=== PATIENT | male | born 1960 | race Caucasian/White ===

== ENCOUNTER 2022-07-31 08:50 | Emergency (ER) | payer MEDICARE ==
--- NOTE | 2022-07-31 08:59 | ERPHSYRPT ---
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 Briseno who presents with initial left upper extremity achiness that began last night followed by this morning having left anterior chest wall pressure/ache that radiates into the left upper extremity and there is associated shortness of breath at rest. Patient does have a history of hypertension, atrial fibrillation on Eliquis, and gastroesophageal reflux disease. Patient is most concerned about the shortness of breath at rest which is different for him. Patient denies cough. Patient denies fever. Activities at Onset: rest Quality: aching, pressure Chest Pain Radiation: arm (Left) Severity of Pain-Max: mild Severity of Pain-Current: mild Modifying Factors: Improves With: exertion (Worsens), rest (Still present at rest) Associated Symptoms: nausea, shortness of breath, No cough Prior Chest Pain/Cardiac Workup: cardiac cath Nitro Today/Relief: no nitro taken today Aspirin Treatment Today: no aspirin today Allergies/Adverse Reactions: No Known Drug Allergies Allergy (Verified 07/31/22 08:54) Home Medications: Cyclobenzaprine HCl 10 mg [Flexeril 10 MG] 10 mg PO DAILY PRN PRN 09/17/11 [History] Enalapril Maleate 10 mg [Vasotec 10 MG] 10 mg PO DAILY 09/17/11 [History] Ranitidine HCl [zanTAC 150 MG TABLET] 300 mg PO DAILY 09/17/11 [History] Alendronate Sodium 70 mg [Fosamax 70 MG] 70 mg PO WEEKLY 01/27/15 [History] Ascorbic Acid 500 mg [Vitamin C 500 MG] 1,000 mg PO DAILY 01/27/15 [History] Aspirin [Aspir-Low] 81 mg PO DAILY 01/27/15 [History] Calcium Carbonate/Vitamin D3 [Calcium 600 + D Tablet] 1 each PO DAILY 01/27/15 [History] Mometasone Furoate [Nasonex] 17 gm NS BID 01/27/15 [History] [place]-3 Fatty Acids [Fish Oil] 300 mg PO TID 01/27/15 [History] Hx Tetanus, Diphtheria Vaccination/Date Given: No (UNSURE) Hx Influenza Vaccination/Date Given: No Hx Pneumococcal Vaccination/Date Given: No Travel Risk - International Travel Have you traveled outside of the country in past 3 weeks: No - Coronavirus Screening Are you exhibiting any of the following symptoms?: No Close contact with a COVID-19 positive Pt in past 14-21 Days: No - Review of Systems Constitutional: No Symptoms Eyes: No Symptoms Ears, Nose, & Throat: No Symptoms Respiratory: Dyspnea Cardiac: Chest Pain (Described as left chest pressure/ache) Abdominal/Gastrointestinal: No Symptoms Genitourinary Symptoms: No Symptoms Musculoskeletal: No Symptoms Skin: No Symptoms Neurological: No Symptoms Psychological: No Symptoms Endocrine: No Symptoms Hematologic/Lymphatic: No Symptoms Immunological/Allergic: No Symptoms All Other Systems: Reviewed and Negative - Past Medical History Pertinent Past Medical History: Yes Cardiac History: Hypertension GI Medical History: GERD Other Medical History: Decreased bone density - Past Surgical History Past Surgical History: No - Social History Smoking Status: Current some day smoker Exposure to second hand smoke: Yes Drug Use: none Patient Lives Alone: No - Nursing Vital Signs Nursing Vital Signs: Initial Vital Signs Temperature 96.6 F 07/31/22 08:55 Pulse Rate 91 H 07/31/22 08:55 Respiratory Rate 20 07/31/22 08:55 Blood Pressure 118/75 07/31/22 08:55 O2 Sat by Pulse Oximetry 96 07/31/22 08:55 Pain Scale Pain Intensity 5 - Physical Exam General Appearance: no apparent distress, alert, anxiety, obese Eye Exam: PERRL/EOMI, eyes nml inspection Ears, Nose, Throat Exam: normal ENT inspection, moist mucous membranes Neck Exam: normal inspection, non-tender, supple, full range of motion Respiratory Exam: normal breath sounds, chest tenderness (Left chest), lungs clear ( ache/pressure), airway intact, No respiratory distress Cardiovascular Exam: irregular Gastrointestinal/Abdomen Exam: soft, normal bowel sounds, No tenderness Rectal Exam: not done Back Exam: normal inspection, normal range of motion, No CVA tenderness, No vertebral tenderness Extremity Exam: normal inspection, normal range of motion, pelvis stable Neurologic Exam: alert, oriented x 3, cooperative, all source collection manager II-XII nml as tested, normal mood/affect, nml cerebellar function, nml station & gait, sensation nml Skin Exam: normal color, warm, dry Lymphatic Exam: No adenopathy SpO2 Interpretation: normal O2 Delivery: Room Air - Course Nursing assessment & vital signs reviewed: Yes EKG Interpreted by Me: RATE (92), Right Bundle Branch Block, Other (This patient shows no acute ischemic changes. The computer readout of this twelve-lead EKG is his atrial flutter. I think the patient is in rate controlled atrial fibrillation.) Ordered Tests: Active Orders 24 hr Category Date Time Status Cartography Supervisor STAT Care 07/31/22 09:07 Active EKG-ER Only STAT Care 07/31/22 09:07 Active IV Insertion STAT Care 07/31/22 09:07 Active Pulse Oximetry (ED) STAT Care 07/31/22 09:07 Active CHEST 1 VIEW (PORTABLE) Stat Exams 07/31/22 09:07 Completed CBC W DIFF Stat Lab 07/31/22 09:10 Completed CMP Stat Lab 07/31/22 09:10 Completed NT PRO BNPII Stat Lab 07/31/22 09:10 Completed PROTIME WITH INR Stat Lab 07/31/22 09:10 Completed TROPONIN Q4H Lab 07/31/22 09:10 Completed TROPONIN Q4H Lab 07/31/22 13:15 Ordered TROPONIN Q4H Lab 07/31/22 17:15 Ordered Medication Summary Discontinued Medications Generic Name Dose Route Start Last Admin Trade Name Freq PRN Reason Stop Dose Admin Aspirin 324 mg 07/31/22 09:07 07/31/22 09:13 Aspirin 81 Mg Tab.Chew PO 07/31/22 09:08 324 mg STAT ONE Administration Aspirin Confirm 07/31/22 09:23 Aspirin 81 Mg Tab.Chew Administered 07/31/22 09:24 Dose 324 mg .ROUTE .STK-MED ONE Lab/Rad Data: Laboratory Result Diagrams 07/31/22 09:10 07/31/22 09:10 Laboratory Results 07/31/22 07/31/22 07/31/22 Range/Units 09:10 09:10 09:10 WBC (4.0-10.5) x10^3/uL RBC (4.1-5.6) x10^6/uL Hgb (12.5-18.0) g/dL Hct (42-50) % MCV (78-100) fL MCH (26-32) pg MCHC (32-36) g/dL RDW (11.5-14.0) % Plt Count (150-450) x10^3/uL MPV (7.5-11.0) fL Gran % (36.0-66.0) % Immature Gran % (Auto) (0.00-0.4) % Nucleat RBC Rel Count (0.00-0.1) % Eos # (Auto) (0-0.5) x10^3/uL Immature Gran # (Auto) (0.00-0.03) x10^3u/L Absolute Lymphs (auto) (1.0-4.6) x10^3/uL Absolute Monos (auto) (0.0-1.3) x10^3/uL Absolute Nucleated RBC (0.00-0.01) x10^3u/L Lymphocytes % (24.0-44.0) % Monocytes % (0.0-12.0) % Eosinophils % (0.00-5.0) % Basophils % (0.0-0.4) % Absolute Granulocytes (1.4-6.9) x10^3/uL Basophils # (0-0.4) x10^3/uL PT 12.0 (9.4-12.5) SECONDS INR 1.11 (0.8-3.0) Sodium 137 (137-145) mmol/L Potassium 3.7 (3.5-5.1) mmol/L Chloride 100 (98-107) mmol/L Carbon Dioxide 31 H (22-30) mmol/L Anion Gap 9.4 (5-15) MEQ/L BUN 13 (9-20) mg/dL Creatinine 0.59 L (0.66-1.25) mg/dL Estimated GFR > 60.0 ML/MIN Glucose 102 (74-106) mg/dL Calcium 8.3 L (8.4-10.2) mg/dL Total Bilirubin 0.60 (0.2-1.3) mg/dL AST 27 (17-59) U/L ALT 22 (0-50) U/L Alkaline Phosphatase 68 (38-126) U/L Troponin I 0.390 H* (0.000-0.034) ng/mL NT-Pro-B Natriuret Pep 1700 (<300) pg/mL Serum Total Protein 5.7 L (6.3-8.2) g/dL Albumin 3.4 L (3.5-5.0) g/dL 07/31/22 Range/Units 09:10 WBC 5.1 (4.0-10.5) x10^3/uL RBC 4.53 (4.1-5.6) x10^6/uL Hgb 13.3 (12.5-18.0) g/dL Hct 40.2 L (42-50) % MCV 88.7 (78-100) fL MCH 29.4 (26-32) pg MCHC 33.1 (32-36) g/dL RDW 15.5 H (11.5-14.0) % Plt Count 235 (150-450) x10^3/uL MPV 9.0 (7.5-11.0) fL Gran % 48.6 (36.0-66.0) % Immature Gran % (Auto) 1.4 H (0.00-0.4) % Nucleat RBC Rel Count 0.0 (0.00-0.1) % Eos # (Auto) 0.30 (0-0.5) x10^3/uL Immature Gran # (Auto) 0.07 H (0.00-0.03) x10^3u/L Absolute Lymphs (auto) 1.42 (1.0-4.6) x10^3/uL Absolute Monos (auto) 0.76 (0.0-1.3) x10^3/uL Absolute Nucleated RBC 0.00 (0.00-0.01) x10^3u/L Lymphocytes % 27.8 (24.0-44.0) % Monocytes % 14.9 H (0.0-12.0) % Eosinophils % 5.9 H (0.00-5.0) % Basophils % 1.4 (0.0-0.4) % Absolute Granulocytes 2.49 (1.4-6.9) x10^3/uL Basophils # 0.07 (0-0.4) x10^3/uL PT (9.4-12.5) SECONDS INR (0.8-3.0) Sodium (137-145) mmol/L Potassium (3.5-5.1) mmol/L Chloride (98-107) mmol/L Carbon Dioxide (22-30) mmol/L Anion Gap (5-15) MEQ/L BUN (9-20) mg/dL Creatinine (0.66-1.25) mg/dL Estimated GFR ML/MIN Glucose (74-106) mg/dL Calcium (8.4-10.2) mg/dL Total Bilirubin (0.2-1.3) mg/dL AST (17-59) U/L ALT (0-50) U/L Alkaline Phosphatase (38-126) U/L Troponin I (0.000-0.034) ng/mL NT-Pro-B Natriuret Pep (<300) pg/mL Serum Total Protein (6.3-8.2) g/dL Albumin (3.5-5.0) g/dL - Progress Progress: improved, re-examined Air Movement: good Progress Note: 07/31/22 10:05 Chest x-ray impression by radiologist and reviewed by me. X-ray shows nonacute features with chronic changes. 07/31/22 11:18 This patient's medical issue is 1 of high complexity. The complexity and the work-up here in the emergency department is based on review of the patient's past medical history, review of the patient's medication list, [facility], history of present illness and physical findings on examination. The work-up performed was placement of intravenous line, twelve- lead EKG, CBC, CMP, chest x-ray, BNP, troponin level. I reviewed the results of the studies. The twelve-lead EKG shows rate controlled atrial fibrillation. The patient is having persistent chest pain. His troponin level is also elevated at 0.39. I spoke with digital experience manager Dr. Briseno. I reviewed the above history of present illness, twelve-lead EKG results, chest x-ray results, and results of the patient's blood work. Dr. Briseno agrees the patient should be transferred to a facility where he is working. [facility] in [facility] and be admitted to the hospitalist. 07/31/22 11:46 I contacted [facility] emergency physician Dr. Reyes. I reviewed the above history, physical findings, twelve-lead EKG and chest x-ray findings well as the lab results. He accepts the patient in transfer to his facility. Blood Culture(s) Obtained: No Antibiotics given: No Discussed with : Bindu Counseled pt/family regarding: lab results, diagnosis, need for follow-up, rad results Medical Desision Making - Independent Historian Additional History obtained from: Spouse - Discussion of managment Reviewed:: Test results, Need for additional workup Agreed on:: Treatment plan, need for follow-up - Diagnostic Testing Diagnostic test were ordered, analyzed, and reviewed by me: Yes Radiological Interpretation: Reviewed by me - Risk of complications The pt has a high risk of morbidity or mortality based on: Decision regarding hospitilization or escalation of hosp level of care - Departure Departure Disposition: Transfer Clinical Impression: Chest pain, Elevated troponin, Non-STEMI (non-ST elevated myocardial infarction) Condition: Stable Critical Care Time: Yes Critical Care Time(excluding separately billable procedures): Critical 30-74 mins (40 minutes) Referrals: ARCENIO ESPINOZA [Primary Care Provider] - Follow up/PCP as directed
[2022-07-31] MEDS ORDERED: BABY ASPIRIN 81 MG CHEW PO ONE (09:07)
[2022-07-31] MEDS ORDERED: BABY ASPIRIN 81 MG CHEW ONE (09:23)
--- NOTE | 2022-07-31 09:27 | XRAY ---
Indication: Chest pain and short of breath. Comparison: None Portable chest demonstrates chronic lung markings without focal infiltrate, consolidation, or large effusion. Heart borderline enlarged with left Port-A-Cath. Bony thorax intact with osteopenia, degenerative changes, and T10-T12 kyphoplasty. Impression: Nonacute chest with chronic features.
[2022-07-31 09:41] LABS: Absolute Neutrophil Ct (ANC) 2.49 x10^3/uL (1.4-6.9); BASOPHIL % 1.4 % (0.0-0.4); Basophil (Absolute #) 0.07 x10^3/uL (0-0.4); Eosinophil % 5.9 % (0.00-5.0); Hematocrit 40.2 % (42-50); Hemoglobin 13.3 g/dL (12.5-18.0); IMMATURE GRAN # 0.07 x10^3u/L (0.00-0.03); IMMATURE GRAN % 1.4 % (0.00-0.4); Lymphocyte (Absolute #) 1.42 x10^3/uL (1.0-4.6); Lymphocytes % 27.8 % (24.0-44.0); Mean Cell Volume 88.7 fL (78-100); Mean Corpuscular Hemoglobin 29.4 pg (26-32); Mean Corpuscular Hgb Concent. 33.1 g/dL (32-36); Monocyte (Absolute #) 0.76 x10^3/uL (0.0-1.3); Monocytes % 14.9 % (0.0-12.0); Neutrophil % 48.6 % (36.0-66.0); Platelet Count 235 x10^3/uL (150-450); Red Blood Count 4.53 x10^6/uL (4.1-5.6); Red Cell Distribution Width 15.5 % (11.5-14.0); White Blood Count 5.1 x10^3/uL (4.0-10.5)
[2022-07-31 09:54] LABS: INR 1.11 (0.8-3.0)
[2022-07-31 10:07] LABS: ALBUMIN 3.4 g/dL (3.5-5.0); ALKALINE PHOSPHATASE 68 U/L (38-126); ANION GAP 9.4 MEQ/L (5-15); BLOOD UREA NITROGEN 13 mg/dL (9-20); CHLORIDE 100 mmol/L (98-107); Calcium 8.3 mg/dL (8.4-10.2); Carbon Dioxide 31 mmol/L (22-30); Creatinine 1 0.59 mg/dL (0.66-1.25); EST GLOMERULAR FILTRATION RATE > 60.0 ML/MIN; Glucose 102 mg/dL (74-106); NT PRO BNPII 1700 pg/mL (<300); Potassium 3.7 mmol/L (3.5-5.1); SGOT/AST 27 U/L (17-59); SGPT/ALT 22 U/L (0-50); SODIUM 137 mmol/L (137-145); Total Protein 5.7 g/dL (6.3-8.2)
[2022-07-31 12:07] VITALS: BP 137/99; PULSE 98; O2SAT 97
== END 2022-07-31 13:06 | disposition short-term general hospital (02) ==
LOC: ED 08:50
DX: I21.4 Non-ST elevation (NSTEMI) myocardial infarction (principal); R77.8 Other specified abnormalities of plasma proteins; R07.9 Chest pain, unspecified; R06.02 Shortness of breath; I10 Essential (primary) hypertension; Z79.02 Long term (current) use of antithrombotics/antiplatelets; Z79.899 Other long term (current) drug therapy; Z72.0 Tobacco use
CPT/HCPCS: 36000; 36415; 71045; 80053; 83880; 84484; 85025; 85610; 93005; 93041; 94760; 99285; 99291; A9270-GY

== ENCOUNTER 2023-05-13 19:08 | Emergency (ER) | payer MEDICARE ==
[2023-05-13] MEDS ORDERED: NORCO 5/325 MG PO ONE ×2 (19:32→21:59)
--- NOTE | 2023-05-13 19:37 | ERPHSYRPT ---
- History of Present Illness Time Seen by Provider: 05/13/23 19:24 Source: patient Exam Limitations: no limitations Physician History: Pt states about 40 minutes ago at home he slipped on snow and landed on the front porch concrete landing with resultant pain on the right side of his face, neck, right shoulder, right arm and left leg; denies tingling/numbness, chest pain, shortness of air, fever, abdominal pain, nausea, vomiting. Allergies/Adverse Reactions: No Known Drug Allergies Allergy (Verified 05/13/23 19:43) Home Medications: Cyclobenzaprine HCl 10 mg [Flexeril 10 MG] 10 mg PO DAILY PRN PRN 09/17/11 [History] Calcium Carbonate/Vitamin D3 [Calcium 600 + D Tablet] 1 each PO BID 01/27/15 [History] Acyclovir 400 mg PO BID 05/13/23 [History] Apixaban [Eliquis] 5 mg PO BID 05/13/23 [History] Atorvastatin Calcium [Lipitor 40Mg] 40 mg PO DAILY 05/13/23 [History] Dapagliflozin Propanediol [Farxiga] 10 mg PO DAILY 05/13/23 [History] Daratumumab [Darzalex] 400 mg IV UD 05/13/23 [History] Dexamethasone 4 mg [Decadron 4 MG] 20 mg PO UD 05/13/23 [History] Fluticasone/Salmeterol [Advair Hfa 230-21 Mcg Inhaler] 8 gm IH BID 05/13/23 [History] Gabapentin 800 mg PO TID 05/13/23 [History] Hydrocodone/Acetaminophen [Hydrocodone-Acetamin 5-325 mg] 1 each PO BIDPRN PRN 05/13/23 [History] Levothyroxine Sodium 25 Mcg [Synthroid 25 Mcg] 25 mcg PO DAILY 05/13/23 [History] Loperamide HCl 2 mg [Imodium 2 mg] 2 mg PO Q2H/PRN PRN 05/13/23 [History] Loratadine 10 mg [Claritin 10 mg] 10 mg PO DAILY 05/13/23 [History] Metoprolol Tartrate 50 mg [Lopressor 50 MG] 50 mg PO BID 05/13/23 [History] Mv-Min/Folic/K1/Lycopen/Lutein [Centrum Silver Men Tablet] 1 each PO DAILY 05/13/23 [History] Omeprazole 20 mg PO HS 05/13/23 [History] Pomalidomide [Pomalyst] 2 mg PO UD 05/13/23 [History] Prochlorperazine Maleate [Compazine] 10 mg PO BIDPRN PRN 05/13/23 [History] Senna/Docusate Sodium Tab [Senokot-S Tablet] 1 each PO HSPRN PRN 05/13/23 [History] Triamcinolone Acetonide [Nasacort] 2 spray NS DAILY 05/13/23 [History] Triamterene/Hydrochlorothiazid [Triamterene-Hctz 37.5-25 mg Tb] 1 each PO DAILY 05/13/23 [History] Zoledronic AC/Mannitol/0.9NACL [Zoledronic Acid 4 mg/100 ml] 4 mg IV UD 05/13/23 [History] lisinopriL [Zestril] 2.5 mg PO DAILY 05/13/23 [History] Hx Tetanus, Diphtheria Vaccination/Date Given: No (UNSURE) Hx Influenza Vaccination/Date Given: No Hx Pneumococcal Vaccination/Date Given: No Travel Risk - Vaccine Status Have you recieved a Covid-19 vaccination: Yes Inspector Government Property: Unknown - Vaccination Dates Dates if Unknown: na - Review of Systems Constitutional: No Fever Ears, Nose, & Throat: No Ear Pain, No Throat Pain Respiratory: No Cough, No Dyspnea Cardiac: No Chest Pain Abdominal/Gastrointestinal: No Abdominal Pain, No Nausea, No Vomiting Musculoskeletal: Neck Pain, Other (right shoulder, right arm and left leg pain today; decreased rom of right shoulder after fall today.), No Back Pain Skin: Other (abrasions on right side of face, right hand and left leg) Neurological: No Sensory Changes - Past Medical History Pertinent Past Medical History: Yes ENT History: Cataracts Cardiac History: Hypertension Respiratory History: No Pertinent History Endocrine Medical History: Hypothyroidism Musculoskeletal History: No Pertinent History GI Medical History: GERD History: Other Psycho-Social History: No Pertinent History Male Reproductive Disorders: No Pertinent History Other Medical History: Decreased bone density - Past Surgical History Past Surgical History: No Neuro Surgical History: No Pertinent History Cardiac: No Pertinent History Respiratory: No Pertinent History Gastrointestinal: No Pertinent History Genitourinary: No Pertinent History Musculoskeletal: Orthopedic Surgery Male Surgical History: No Pertinent History Other Surgical History: Kyphoplasty X 2. Port placement - Social History Smoking Status: Current some day smoker Exposure to second hand smoke: Yes Drug Use: none Patient Lives Alone: No - Nursing Vital Signs Nursing Vital Signs: Initial Vital Signs Temperature 98.1 F 05/13/23 19:22 Pulse Rate 67 05/13/23 19:22 Respiratory Rate 18 05/13/23 19:22 Blood Pressure 109/56 05/13/23 19:22 O2 Sat by Pulse Oximetry 97 05/13/23 19:22 Pain Scale Pain Intensity 10 - Randolph Coma Score Best Eye Response (Randolph): (4) open spontaneously Best Verbal Response (Randolph): (5) oriented Best Motor Response (Randolph): (6) obeys commands Randolph Total: 15 - Physical Exam General Appearance: alert Head Injury: tenderness (mild tenderness over abrasions on right lower forehead and right facial cheek) Eye Exam: PERRL/EOMI ENT Exam: airway nml, hearing grossly normal, No clear fluid (ears), No clear fluid (nose), No clotted nasal blood Neck Exam: trachea midline, tenderness (mild right posterior tenderness) Respiratory/Chest Exam: normal breath sounds, No chest tenderness Cardiovascular Exam: normal heart sounds Gastrointestinal Exam: soft, normal bowel sounds, No tenderness Back Exam: No vertebral tenderness Extremity Exam: motor deficit (decreased rom of right shoulder with tenderness over anterior aspect and upper right arm tenderness), tenderness (mild tenderness over abrasions on proximal radial aspect of right hand; tenderness o brody abrasion over upper anterior aspect of left leg.) Peripheral Pulses: dorsalis-pedis (R): 1+, dorsalis-pedis (L): 1+ Neurologic Exam: alert, cooperative, normal mood/affect, No disoriented Skin Exam: No cyanosis - Radiology Exams Right Shoulder X-ray Interpretation: Interpreted by me (Fracture upper right humerus) Left Lower Leg X-ray Interpretation: Interpreted by me, No Fracture Right Humerus X-ray Interpretation: Interpreted by me (Fx upper right humerus) Right Hand X-ray Interpretation: Interpreted by me, No Fracture - CT Exams Head CT Interpretation: Tele-radiologist Report (No evidence of acute intracranial abnormality is demonstrated. Chronic microvascular ischemic change. Cerebral atrophy.) Cervical Spine CT Interpretation: Tele-radiologist Report (No acute fracture/traumatic subluxation.) Maxillofacial Bones CT Interpretation: Tele-radiologist Report (No acute fracture. Mild fat stranding in subcutaneous plane right maxillary area.) Ordered Tests: Active Orders 24 hr Category Date Time Status Cervical Collar Application STAT Care 05/13/23 19:32 Active CERVICAL SPINE WO CONTRAST [CT] Stat Exams 05/13/23 19:32 Completed FACIAL BONES WO CONTRAST [CT] Stat Exams 05/13/23 19:32 Completed HAND (MINIMUM 3 VIEWS) Stat Exams 05/13/23 19:33 Taken HEAD WITHOUT CONTRAST [CT] Stat Exams 05/13/23 19:32 Completed HUMERUS Stat Exams 05/13/23 19:34 Taken LOWER LEG Stat Exams 05/13/23 19:35 Taken SHOULDER Stat Exams 05/13/23 19:34 Taken Medication Summary Discontinued Medications Generic Name Dose Route Start Last Admin Trade Name Freq PRN Reason Stop Dose Admin Hydrocodone Bitart/Acetaminophen 2 tab 05/13/23 19:32 05/13/23 19:41 Hydrocodone/Apap 5/325 1 Tab Tablet PO 05/13/23 19:33 2 tab STAT ONE Administration Hydrocodone Bitart/Acetaminophen Confirm 05/13/23 19:39 Hydrocodone/Apap 5/325 1 Tab Tablet Administered 05/13/23 19:40 Dose 2 tab .ROUTE .STK-MED ONE Hydrocodone Bitart/Acetaminophen 2 tab 05/13/23 21:59 Hydrocodone/Apap 5/325 1 Tab Tablet PO 05/13/23 22:00 SENT HOME W/ PATIENT ONE Cephalexin HCl 500 mg 05/13/23 22:04 Cephalexin Mh500 Mg Capsule PO 05/13/23 22:05 STAT ONE - Progress Progress: unchanged Discussed with : Other (Spoke with Dr. Barros(Orthopedic surgeon)([id number]) who will see pt in her office. [phone]) Counseled pt/family regarding: diagnosis, need for follow-up, rad results Medical Desision Making - Diagnostic Testing Diagnostic test were ordered, analyzed, and reviewed by me: Yes Radiological Interpretation: Interpreted by me, Teleradiologist Report - Departure Departure Disposition: Home Clinical Impression: Fractured upper right humerus, Right shoulder pain, Abrasion/contusion of right hand, Abrasion/contusion of left leg, abrasion/contusion to right forehead, contusion of right facial cheek, Cervical strain, Fall Condition: Stable Critical Care Time: No Referrals: ARCENIO ESPINOZA [Primary Care Provider] - Follow up/PCP as directed Instructions: Fractures, Skin Abrasions, Contusion (DC) Additional Instructions: Wear right arm sling & swath. Follow up with Dr Barros(orthopedic surgeon) tomorrow; call for an appointment. Wear soft C-collar for the next 2 weeks only while awake. Prescriptions: cephALEXin 500 mg PO TID #21
[2023-05-13] MEDS ORDERED: NORCO 5/325 MG ONE ×2 (19:39→22:51)
[2023-05-13 19:44] VITALS: TEMP 98.1
--- NOTE | 2023-05-13 20:48 | XRAY ---
CLINICAL HISTORY:pain COMPARISON:None TECHNIQUE:Multiple axial images are obtained from the skull base to the vertex without contrast. CT scan was performed according to ALARA (as low as reasonable achievable). FINDINGS: There is cerebral atrophy. No evidence of space occupying lesion, hemorrhage, edema, mass effect, midline shift, extra axial collection, or hydrocephalus is noted. Basal cisterns are symmetric and normal in size and configuration. There are scattered periventricular hypodensities as can be seen with chronic microvascular ischemic changes. The silva-white matter differentiation is preserved. Visualized paranasal sinuses and mastoid air cells are well aerated. Orbital contents are within normal limits. Bony structures are intact. IMPRESSION: 1. No evidence of acute intracranial abnormality is demonstrated. 2. Chronic microvascular ischemic changes. 3. Cerebral atrophy. Electronically Signed by: Dr. Aneesh Denis MD. (05/13/2023 20:44:09 EST)
--- NOTE | 2023-05-13 20:52 | XRAY ---
CLINICAL HISTORY:pain COMPARISON:None TECHNIQUE:Computed tomography of the cervical spine performed without intravenous contrast. Contiguous axial images were obtained from the skull base to T2, with sagittal and coronal reformatted images reconstructed from the axial data. CT scan was performed according to ALARA (as low as reasonable achievable). FINDINGS: Loss of cervical lordosis is seen, which may be related to positioning. Cervical vertebral bodies are normal in height and alignment, with no evidence of fracture or subluxation. Lateral masses of C1 are symmetrical, and the dens is intact. Prevertebral soft tissues are not widened. The remaining suprahyoid and infrahyoid soft tissues in the neck are unremarkable. Multilevel degenerative bone and disc changes are noted in the form of osteophytes, reduced disc spaces and facet arthropathy causing mild spinal canal narrowing at C6-C7 level. Thyroid gland appears unremarkable IMPRESSION: 1. No acute fracture / traumatic subluxation. Electronically Signed by: Dr. Aneesh Denis MD. (05/13/2023 20:48:18 EST)
--- NOTE | 2023-05-13 21:43 | XRAY ---
CLINICAL HISTORY:pain COMPARISON:None TECHNIQUE:Computed tomography of the orbits/face was performed without intravenous contrast. Contiguous axial images were obtained. Reformatted coronal and sagittal images were also reviewed. CT scan was performed according to ALARA (as low as reasonable achievable). FINDINGS: No acute facial fractures. The paranasal sinuses and mastoid air cells are clear. The globes, optic nerves, extraocular muscles and retro-orbital fat are grossly unremarkable. Reformatted imaging demonstrates intact roof and floor of the orbits. Included portions of the mandible are intact. The included intracranial substances and airway are unremarkable. There is mild fat stranding in the subcutaneous plane in the right maxillary area. IMPRESSION: 1. No acute fracture. 2. Mild fat stranding in the subcutaneous plane in the right maxillary area. Electronically Signed by: Dr. Aneesh Denis MD. (05/13/2023 21:39:27 EST)
[2023-05-13] MEDS ORDERED: KEFLEX 500 MG PO ONE (22:04)
[2023-05-13 22:06] VITALS: RESP 18
[2023-05-13] MEDS ORDERED: KEFLEX 500 MG ONE (22:51)
[2023-05-13] MEDS ORDERED: BACIGUENT PACKET TP ONE (22:54)
[2023-05-13] MEDS ORDERED: Adacel Vial IM ONE ×2 (22:54→22:58)
[2023-05-13] MEDS ORDERED: BACIGUENT PACKET ONE (22:57)
[2023-05-14 00:07] VITALS: BP 113/57; PULSE 71; O2SAT 98
--- NOTE | 2023-05-14 08:44 | XRAY ---
Indication: Pain following fall. Comparison: None 3 view right shoulder demonstrates comminuted and displaced humeral head fracture. Elsewhere osteopenia, moderate acromioclavicular degenerative changes, tiny right lung calcified granuloma, and incompletely visualized left Port-A-Cath.
--- NOTE | 2023-05-14 08:44 | XRAY ---
Indication: Pain following fall. Comparison: None 2 view right humerus demonstrates comminuted and displaced humeral head fracture. Elsewhere osteopenia, moderate acromioclavicular degenerative changes, and tiny right lung calcified granuloma.
--- NOTE | 2023-05-14 08:46 | XRAY ---
Indication: Pain following fall. Comparison: None 3 view right hand demonstrates osteopenia and minimal degenerative changes all IP joints/base 1st metacarpal. No other bony, articular, or soft tissue abnormalities.
--- NOTE | 2023-05-14 08:46 | XRAY ---
Indication: Pain following fall. Comparison: None 2 view left lower leg demonstrates osteopenia, small suprapatella spurring, tiny lateral femoral condyle bone island, and minimal vascular calcifications. No other bony, articular, or soft tissue abnormalities.
== END 2023-05-13 23:18 | disposition home or self-care (01) ==
LOC: ED 19:08
DX: S42.291A Other displaced fracture of upper end of right humerus, initial encounter for closed fracture (principal); S60.511A Abrasion of right hand, initial encounter; S80.811A Abrasion, right lower leg, initial encounter; S00.81XA Abrasion of other part of head, initial encounter; S00.83XA Contusion of other part of head, initial encounter; S16.1XXA Strain of muscle, fascia and tendon at neck level, initial encounter; W00.0XXA Fall on same level due to ice and snow, initial encounter; Y92.007 Garden or yard of unspecified non-institutional (private) residence as the place of occurrence of the external cause; M25.511 Pain in right shoulder; I10 Essential (primary) hypertension; Z79.01 Long term (current) use of anticoagulants; Z79.84 Long term (current) use of oral hypoglycemic drugs; Z79.52 Long term (current) use of systemic steroids; Z79.891 Long term (current) use of opiate analgesic; Z79.899 Other long term (current) drug therapy; Z72.0 Tobacco use; Z23 Encounter for immunization
CPT/HCPCS: 70450; 70486; 72125; 73030; 73060; 73130; 73590; 90471; 90715; 99284; L0120; L3650; A9270-GY

== ENCOUNTER 2024-06-27 10:50 | Emergency (ER) | payer MEDICARE ==
--- NOTE | 2024-06-27 11:03 | ERPHSYRPT ---
- History of Present Illness Time Seen by Provider: 06/27/24 11:03 Source: patient, family Exam Limitations: no limitations Physician History: This is a 63-year-old white male patient who arrives by private vehicle accompanied by family secondary to fever symptoms for 2 days. Patient has history of multiple myeloma and is on chemotherapy for it. His last treatment was approximately 10 days ago. He has had cough and chest congestion for approximately 1 month and did receive a treatment of antibiotics approximately 2 to 3 weeks ago. He was improving on that antibiotic. Since the completion of that antibiotic therapy, his symptoms have recurred and persisted. Patient sees Dr. Fiore, handicrafts teacher/oncologist out of [facility]. Patient denies shortness of breath. Patient denies chest pain. He has no abdominal pain. He currently has no nausea vomiting or diarrhea symptoms. Patient has a history of hypertension, gastroesophageal reflux disease, hypothyroidism and peripheral neuropathy. He also has a history of hyperlipidemia and is on E liquis. Timing/Duration: day(s) (2) Fever Severity: mild Fever Therapy RETAIL LOAN ORIGINATOR: none Associated Symptoms: cough Allergies/Adverse Reactions: No Known Drug Allergies Allergy (Verified 06/27/24 10:57) Home Medications: Cyclobenzaprine HCl 10 mg [Flexeril 10 MG] 10 mg PO DAILY PRN PRN 09/17/11 [History] Calcium Carbonate/Vitamin D3 [Calcium 600 + D Tablet] 1 each PO BID 01/27/15 [History] Acyclovir 400 mg PO BID 05/13/23 [History] Apixaban [Eliquis] 5 mg PO BID 05/13/23 [History] Atorvastatin Calcium [Lipitor 40Mg] 40 mg PO DAILY 05/13/23 [History] Dapagliflozin Propanediol [Farxiga] 10 mg PO DAILY 05/13/23 [History] Daratumumab [Darzalex] 400 mg IV UD 05/13/23 [History] Dexamethasone 4 mg [Decadron 4 MG] 20 mg PO UD 05/13/23 [History] Fluticasone Propion/Salmeterol [Advair Hfa 230-21 Mcg Inhaler] 8 gm IH BID 05/13/23 [History] Gabapentin 800 mg PO TID 05/13/23 [History] Hydrocodone/Acetaminophen [Hydrocodone-Acetamin 5-325 mg] 1 each PO BIDPRN PRN 05/13/23 [History] Levothyroxine Sodium 25 Mcg [Synthroid 25 Mcg] 25 mcg PO DAILY 05/13/23 [History] Loperamide HCl 2 mg [Imodium 2 mg] 2 mg PO Q2H/PRN PRN 05/13/23 [History] Loratadine 10 mg [Claritin 10 mg] 10 mg PO DAILY 05/13/23 [History] Metoprolol Tartrate 50 mg [Lopressor 50 MG] 50 mg PO BID 05/13/23 [History] Mv-Min/Folic/K1/Lycopen/Lutein [Centrum Silver Men Tablet] 1 each PO DAILY 05/13/23 [History] Omeprazole 20 mg PO HS 05/13/23 [History] Pomalidomide [Pomalyst] 2 mg PO UD 05/13/23 [History] Prochlorperazine Maleate [Compazine] 10 mg PO BIDPRN PRN 05/13/23 [History] Senna/Docusate Sodium Tab [Senokot-S Tablet] 1 each PO HSPRN PRN 05/13/23 [History] Triamcinolone Acetonide [Nasacort] 2 spray NS DAILY 05/13/23 [History] Triamterene/Hydrochlorothiazid [Triamterene-Hctz 37.5-25 mg Tb] 1 each PO DAILY 05/13/23 [History] Zoledronic AC/Mannitol/0.9NACL [Zoledronic Acid 4 mg/100 ml] 4 mg IV UD 05/13/23 [History] lisinopriL [Zestril] 2.5 mg PO DAILY 05/13/23 [History] Hx Tetanus, Diphtheria Vaccination/Date Given: No (UNSURE) Hx Influenza Vaccination/Date Given: No Hx Pneumococcal Vaccination/Date Given: No Travel Risk - Emerging Infectious Disease Are you exhibiting symptoms associated with any current EIDs: Yes Symptoms: Cough: New Onset, Fever, Headaches/Body Aches/ - Review of Systems Constitutional: Fever Eyes: No Symptoms Ears, Nose, & Throat: No Symptoms Respiratory: Cough Cardiac: No Symptoms Abdominal/Gastrointestinal: No Symptoms Genitourinary Symptoms: No Symptoms Musculoskeletal: Arthralgias, Myalgias Skin: No Symptoms Neurological: No Symptoms Psychological: No Symptoms Endocrine: No Symptoms Hematologic/Lymphatic: No Symptoms Immunological/Allergic: No Symptoms All Other Systems: Reviewed and Negative - Past Medical History Pertinent Past Medical History: Yes Neurological History: Peripheral Neuropathy ENT History: Cataracts Cardiac History: Hypertension Respiratory History: No Pertinent History Endocrine Medical History: Hypothyroidism Musculoskeletal History: No Pertinent History GI Medical History: GERD History: Other Psycho-Social History: No Pertinent History Male Reproductive Disorders: No Pertinent History Other Medical History: Decreased bone density,multimylomia - Past Surgical History Past Surgical History: Yes Neuro Surgical History: No Pertinent History Cardiac: No Pertinent History Respiratory: No Pertinent History Gastrointestinal: No Pertinent History Genitourinary: No Pertinent History Musculoskeletal: Orthopedic Surgery Male Surgical History: No Pertinent History Other Surgical History: Kyphoplasty X 2. Port placement - Social History Smoking Status: Current some day smoker Exposure to second hand smoke: Yes Drug Use: none Patient Lives Alone: No - Nursing Vital Signs Nursing Vital Signs: Initial Vital Signs Temperature 99.4 F 06/27/24 11:15 Pulse Rate 122 H 06/27/24 11:15 Respiratory Rate 18 06/27/24 11:15 Blood Pressure 105/90 06/27/24 11:15 O2 Sat by Pulse Oximetry 91 L 06/27/24 11:15 Pain Scale Pain Intensity 0 - Physical Exam General Appearance: no apparent distress, alert, anxiety Eye Exam: PERRL/EOMI, eyes nml inspection ENT Exam: normal ENT inspection, hearing grossly normal, TMs normal Neck Exam: normal inspection, non-tender, supple, full range of motion Respiratory Exam: normal breath sounds, lungs clear, no respiratory distress, no accessory muscle use, No chest non-tender, No decreased breath sounds, No respiratory distress Cardiovascular/Chest Exam: tachycardia Gastrointestinal/Abdominal Exam: soft, non tender, no distention, no mass, no guarding Rectal Exam: not done Extremity Exam: non-tender, normal range of motion, normal inspection Neurologic Exam: alert, oriented x 3, cooperative, butt welder II-XII nml as tested, nml cerebellar function, nml station & gait, sensation nml Skin Exam: normal color, warm, dry Lymphatic: No adenopathy SpO2 Interpretation: borderline oxygenation O2 Delivery: Room Air - Course Nursing assessment & vital signs reviewed: Yes Ordered Tests: Active Orders 24 hr Category Date Time Status News Camera Person STAT Care 06/27/24 11:04 Active IV Insertion STAT Care 06/27/24 11:03 Active Pulse Oximetry (ED) STAT Care 06/27/24 11:03 Active CHEST 1 VIEW (PORTABLE) Stat Exams 06/27/24 11:04 Completed BLOOD CULTURE Stat Lab 06/27/24 11:36 Received CBC W DIFF Stat Lab 06/27/24 11:36 Completed CMP Stat Lab 06/27/24 11:36 Completed Lactic Acid Stat Lab 06/27/24 11:03 Completed MONO SCREEN Stat Lab 06/27/24 11:36 Completed PROCALCITONIN Stat Lab 06/27/24 11:36 Completed TSH, 3RD Generation Stat Lab 06/27/24 11:36 Completed UA W/RFX UR CULTURE Stat Lab 06/27/24 13:00 Completed Medication Summary Generic Name Dose Route Start Last Admin Trade Name Freq PRN Reason Stop Dose Admin Levofloxacin 500 mg 06/27/24 16:45 Levofloxacin 500 Mg Tablet PO 06/27/24 16:46 STAT ONE Discontinued Medications Generic Name Dose Route Start Last Admin Trade Name Freq PRN Reason Stop Dose Admin Acetaminophen 650 mg 06/27/24 11:03 06/27/24 11:29 Acetaminophen 325 Mg Tablet PO 06/27/24 11:04 650 mg STAT STA Administration Acetaminophen Confirm 06/27/24 11:27 Acetaminophen 325 Mg Tablet Administered 06/27/24 11:28 Dose 650 mg .ROUTE .STK-MED ONE Albuterol/Ipratropium 3 ml 06/27/24 16:08 06/27/24 16:10 Ipratropium/Albuterol Sulfate 3 Ml Ampul.Neb IH 06/27/24 16:09 3 ml STAT ONE Administration Albuterol/Ipratropium Confirm 06/27/24 16:07 Ipratropium/Albuterol Sulfate 3 Ml Ampul.Neb Administered 06/27/24 16:08 Dose 3 ml IH .STK-MED ONE Sodium Chloride 1,000 mls @ 999 mls/hr 06/27/24 11:03 06/27/24 14:16 Sodium Chloride 0.9% 1000 Ml IV 06/27/24 12:03 Infused .Q1H1M STA Infusion Sodium Chloride Confirm 06/27/24 11:27 Sodium Chloride 0.9% 1000 Ml Administered 06/27/24 11:28 Dose 1,000 mls @ ud .ROUTE .STK-MED ONE Sodium Chloride 1,000 mls @ 999 mls/hr 06/27/24 14:02 06/27/24 15:35 Sodium Chloride 0.9% 1000 Ml IV 06/27/24 15:02 Infused .Q1H1M STA Infusion Sodium Chloride Confirm 06/27/24 14:25 Sodium Chloride 0.9% 1000 Ml Administered 06/27/24 14:26 Dose 1,000 mls @ ud .ROUTE .STK-MED ONE Lab/Rad Data: Laboratory Result Diagrams 06/27/24 11:36 06/27/24 11:36 Laboratory Results 06/27/24 06/27/24 06/27/24 Range/Units 13:00 11:50 11:50 WBC (4.23-9.07) x10^3/uL RBC (4.63-6.08) x10^6/uL Hgb (13.7-17.5) g/dL Hct (40.1-51.0) % MCV (79.0-92.2) fL MCH (25.7-32.2) pg MCHC (32.3-36.5) g/dL RDW (11.6-14.4) % Plt Count (163-337) x10^3/uL MPV (9.4-12.4) fL Gran % (34.0-67.9) % Immature Gran % (Auto) (0.001-0.429) % Nucleat RBC Rel Count (0.00-0.2) % Eos # (Auto) (0.04-0.54) x10^3/uL Immature Gran # (Auto) (0.001-0.031) x10^3u/L Absolute Lymphs (auto) (1.32-3.57) x10^3/uL Absolute Monos (auto) (0.30-0.82) x10^3/uL Absolute Nucleated RBC (0.00-0.012) x10^3u/L Lymphocytes % (21.8-53.1) % Monocytes % (5.3-12.2) % Eosinophils % (0.8-7.0) % Basophils % (0.2-1.2) % Absolute Granulocytes (1.78-5.38) x10^3/uL Basophils # (0.01-0.08) x10^3/uL Sodium (135-145) mmol/L Potassium (3.5-5.1) mmol/L Chloride (98-107) mmol/L Carbon Dioxide (22-30) mmol/L Anion Gap (5-15) MEQ/L BUN (9-20) mg/dL Creatinine (0.66-1.25) mg/dL Estimated GFR ML/MIN Glucose (74-106) mg/dL Lactic Acid (0.4-2.0) Calcium (8.4-10.2) mg/dL Total Bilirubin (0.2-1.3) mg/dL AST (17-59) U/L ALT (0-50) U/L Alkaline Phosphatase (38-126) U/L Serum Total Protein (6.3-8.2) g/dL Albumin (3.5-5.0) g/dL Procalcitonin (0.030-0.080) ng/mL Free T4 (0.78-2.19) ng/dL TSH 3rd Generation (0.470-4.680) mIU/L Urine Color Dark Yellow (Yellow) Urine Appearance Clear (Clear) Urine pH 5.5 (4.6-8.0) Ur Specific Reading >=1.030 A (1.005-1.030) Urine Protein 30 (Negative) Urine Glucose (UA) >=1000 A (Negative) mg/dL Urine Ketones 40 A (Negative) Urine Blood Negative (Negative) Urine Nitrite Negative (Negative) Urine Bilirubin Negative (Negative) Urine Urobilinogen 1.0 A (0.2) mg/dL Ur Leukocyte Esterase Negative (Negative) U Hyaline Cast (Auto) NONE SEEN (0-2) /LPF Urine Microscopic RBC 0-2 (0-5) /HPF Urine Microscopic WBC 0-2 (0-5) /HPF Ur Epithelial Cells None Seen (None Seen) /HPF Urine Bacteria None Seen (None Seen) /HPF Urine Culture Reflexed NO (NO) Monoscreen (NEGATIVE) Influenza Type A Ag NEGATIVE (NEGATIVE) Influenza Type B Ag NEGATIVE (NEGATIVE) RSV (PCR) NEGATIVE (NEGATIVE) SARS-CoV-2 (PCR) NEGATIVE (NEGATIVE) Group A Strep Antibody NOT DETECTED (NEGATIVE) Slides for Path Review 06/27/24 06/27/24 06/27/24 Range/Units 11:36 11:36 11:36 WBC 5.4 (4.23-9.07) x10^3/uL RBC 3.07 L (4.63-6.08) x10^6/uL Hgb 9.6 L (13.7-17.5) g/dL Hct 29.8 L (40.1-51.0) % MCV 97.1 H (79.0-92.2) fL MCH 31.3 (25.7-32.2) pg MCHC 32.2 L (32.3-36.5) g/dL RDW 21.2 H (11.6-14.4) % Plt Count 141 L (163-337) x10^3/uL MPV 10.5 (9.4-12.4) fL Gran % 83.8 H (34.0-67.9) % Immature Gran % (Auto) 1.1 H (0.001-0.429) % Nucleat RBC Rel Count 0.0 (0.00-0.2) % Eos # (Auto) 0 L (0.04-0.54) x10^3/uL Immature Gran # (Auto) 0.06 H (0.001-0.031) x10^3u/L Absolute Lymphs (auto) 0.23 L (1.32-3.57) x10^3/uL Absolute Monos (auto) 0.54 (0.30-0.82) x10^3/uL Absolute Nucleated RBC 0.00 (0.00-0.012) x10^3u/L Lymphocytes % 4.3 L (21.8-53.1) % Monocytes % 10.1 (5.3-12.2) % Eosinophils % 0.0 L (0.8-7.0) % Basophils % 0.7 (0.2-1.2) % Absolute Granulocytes 4.49 (1.78-5.38) x10^3/uL Basophils # 0.04 (0.01-0.08) x10^3/uL Sodium (135-145) mmol/L Potassium (3.5-5.1) mmol/L Chloride (98-107) mmol/L Carbon Dioxide (22-30) mmol/L Anion Gap (5-15) MEQ/L BUN (9-20) mg/dL Creatinine (0.66-1.25) mg/dL Estimated GFR ML/MIN Glucose (74-106) mg/dL Lactic Acid (0.4-2.0) Calcium (8.4-10.2) mg/dL Total Bilirubin (0.2-1.3) mg/dL AST (17-59) U/L ALT (0-50) U/L Alkaline Phosphatase (38-126) U/L Serum Total Protein (6.3-8.2) g/dL Albumin (3.5-5.0) g/dL Procalcitonin (0.030-0.080) ng/mL Free T4 1.18 (0.78-2.19) ng/dL TSH 3rd Generation (0.470-4.680) mIU/L Urine Color (Yellow) Urine Appearance (Clear) Urine pH (4.6-8.0) Ur Specific Reading (1.005-1.030) Urine Protein (Negative) Urine Glucose (UA) (Negative) mg/dL Urine Ketones (Negative) Urine Blood (Negative) Urine Nitrite (Negative) Urine Bilirubin (Negative) Urine Urobilinogen (0.2) mg/dL Ur Leukocyte Esterase (Negative) U Hyaline Cast (Auto) (0-2) /LPF Urine Microscopic RBC (0-5) /HPF Urine Microscopic WBC (0-5) /HPF Ur Epithelial Cells (None Seen) /HPF Urine Bacteria (None Seen) /HPF Urine Culture Reflexed (NO) Monoscreen NEGATIVE (NEGATIVE) Influenza Type A Ag (NEGATIVE) Influenza Type B Ag (NEGATIVE) RSV (PCR) (NEGATIVE) SARS-CoV-2 (PCR) (NEGATIVE) Group A Strep Antibody (NEGATIVE) Slides for Path Review YES 06/27/24 06/27/24 Range/Units 11:36 11:03 WBC (4.23-9.07) x10^3/uL RBC (4.63-6.08) x10^6/uL Hgb (13.7-17.5) g/dL Hct (40.1-51.0) % MCV (79.0-92.2) fL MCH (25.7-32.2) pg MCHC (32.3-36.5) g/dL RDW (11.6-14.4) % Plt Count (163-337) x10^3/uL MPV (9.4-12.4) fL Gran % (34.0-67.9) % Immature Gran % (Auto) (0.001-0.429) % Nucleat RBC Rel Count (0.00-0.2) % Eos # (Auto) (0.04-0.54) x10^3/uL Immature Gran # (Auto) (0.001-0.031) x10^3u/L Absolute Lymphs (auto) (1.32-3.57) x10^3/uL Absolute Monos (auto) (0.30-0.82) x10^3/uL Absolute Nucleated RBC (0.00-0.012) x10^3u/L Lymphocytes % (21.8-53.1) % Monocytes % (5.3-12.2) % Eosinophils % (0.8-7.0) % Basophils % (0.2-1.2) % Absolute Granulocytes (1.78-5.38) x10^3/uL Basophils # (0.01-0.08) x10^3/uL Sodium 132 L (135-145) mmol/L Potassium 3.9 (3.5-5.1) mmol/L Chloride 99 (98-107) mmol/L Carbon Dioxide 24 (22-30) mmol/L Anion Gap 13.1 (5-15) MEQ/L BUN 14 (9-20) mg/dL Creatinine 0.56 L (0.66-1.25) mg/dL Estimated GFR 109.4 ML/MIN Glucose 98 (74-106) mg/dL Lactic Acid 1.0 (0.4-2.0) Calcium 8.3 L (8.4-10.2) mg/dL Total Bilirubin 1.50 H (0.2-1.3) mg/dL AST 33 (17-59) U/L ALT 21 (0-50) U/L Alkaline Phosphatase 86 (38-126) U/L Serum Total Protein 5.5 L (6.3-8.2) g/dL Albumin 3.7 (3.5-5.0) g/dL Procalcitonin 0.119 H (0.030-0.080) ng/mL Free T4 (0.78-2.19) ng/dL TSH 3rd Generation 1.911 (0.470-4.680) mIU/L Urine Color (Yellow) Urine Appearance (Clear) Urine pH (4.6-8.0) Ur Specific Reading (1.005-1.030) Urine Protein (Negative) Urine Glucose (UA) (Negative) mg/dL Urine Ketones (Negative) Urine Blood (Negative) Urine Nitrite (Negative) Urine Bilirubin (Negative) Urine Urobilinogen (0.2) mg/dL Ur Leukocyte Esterase (Negative) U Hyaline Cast (Auto) (0-2) /LPF Urine Microscopic RBC (0-5) /HPF Urine Microscopic WBC (0-5) /HPF Ur Epithelial Cells (None Seen) /HPF Urine Bacteria (None Seen) /HPF Urine Culture Reflexed (NO) Monoscreen (NEGATIVE) Influenza Type A Ag (NEGATIVE) Influenza Type B Ag (NEGATIVE) RSV (PCR) (NEGATIVE) SARS-CoV-2 (PCR) (NEGATIVE) Group A Strep Antibody (NEGATIVE) Slides for Path Review - Progress Progress: improved, re-examined Progress Note: 06/27/24 11:40 My medical decision making in the assignment of moderate complexity is based on review of the patient's past medical history, review the patient's medication list, reviewed patient drug allergy list, history of present illness and physical findings on examination. The workup in this patient includes placement of intravenous line, infusion of normal saline solution, CBC, CMP, blood cultures, urinalysis, chest x-ray, viral swabs, group A strep test, monotest, procalcitonin level. Differential diagnosis includes but is not limited to urinary tract infection, dehydration, upper respiratory infection, pneumonia, viral infection, group a strep pharyngitis 06/27/24 13:20 Chest x-ray final report was interpreted by the radiologist. The impression states no acute cardiopulmonary process. 06/27/24 16:51 I interpreted the patient's laboratory data results. Based on the laboratory data results, there is evidence of dehydration. We supplemented the patient's fluid status by infusing normal saline solution. Given the patient has low-grade fever, and elevated procalcitonin and is approaching or is an early pete post chemotherapy, I will provide the patient with Levaquin tablet here in the emergency department and remotely sent a prescription to his pharmacy. I did have respiratory ambulate this patient. During ambulation his oxygen saturation never dropped below 91%. He does not qualify for home oxygen per respiratory therapy. 06/27/24 16:54 His absolute neutrophil count is calculated as [id number] 06/27/24 16:56 Counseled pt/family regarding: lab results, diagnosis, rad results Medical Desision Making - Independent Historian Additional History obtained from: Family - Diagnostic Testing Diagnostic test were ordered, analyzed, and reviewed by me: Yes Radiological Interpretation: Reviewed by me, Teleradiologist Report - Risk of complications The pt has a mod risk of morbidity or mortality based on: Need for prescription drug management - Departure Departure Disposition: Home Clinical Impression: Fever of unknown origin, Cough, Elevated procalcitonin Condition: Stable Critical Care Time: No Referrals: ARCENIO ESPINOZA [Primary Care Provider] - Follow up/PCP as directed Additional Instructions: Drink plenty of fluids. Take your antibiotics and other medications as prescribed. Return to the emergency department if symptoms worsen. Call your handicrafts teacher/oncologist on 06/30/2024, to make arrangements for follow-up appointment to be seen next week. Prescriptions: Levofloxacin [Levaquin 500 MG Tablet] 500 mg PO DAILY #7 tablet
[2024-06-27 11:16] VITALS: TEMP 99.4
[2024-06-27] MEDS ORDERED: Sodium Chloride 0.9% 1000 ML 1,000 ML ONE ×2 (11:27→14:25)
[2024-06-27] MEDS ORDERED: TYLENOL 325 MG ONE (11:27)
[2024-06-27] MEDS: TYLENOL 325 MG PO STA (11:29)
[2024-06-27] MEDS: Sodium Chloride 0.9% 1000 ML 1,000 ML IV STA ×2 (11:29→14:27)
--- NOTE | 2024-06-27 11:29 | XRAY ---
Indication: Fever. Cough. Comparison: July 31, 2022 Portable chest again demonstrates chronic lung markings and minimal left base subsegmental atelectasis/scarring. No focal infiltrate, consolidation, or large effusion. Heart not enlarged again with left Port-A-Cath. Bony thorax intact again with osteopenia, mild degenerative changes, and T10/T11 vertebroplasty. New finding for old right humeral neck fracture. Impression: Continued nonacute chest with chronic features.
[2024-06-27 12:37] LABS: INFLUENZA A NEGATIVE (NEGATIVE); INFLUENZA B NEGATIVE (NEGATIVE); RESPIRATORY SYNCTIAL VIRUS NEGATIVE (NEGATIVE); SARS-CoV-2 Xpert Express NEGATIVE (NEGATIVE)
[2024-06-27 12:42] LABS: ALBUMIN 3.7 g/dL (3.5-5.0); ANION GAP 13.1 MEQ/L (5-15); BILIRUBIN,TOTAL 1.5 mg/dL (0.2-1.3); Calcium 8.3 mg/dL (8.4-10.2); Creatinine 1 0.56 mg/dL (0.66-1.25); EST GLOMERULAR FILTRATION RATE 109.4 ML/MIN; PROCALCITONIN 0.119 ng/mL (0.030-0.080); Potassium 3.9 mmol/L (3.5-5.1); TSH, 3RD Generation 1.911 mIU/L (0.470-4.680); Total Protein 5.5 g/dL (6.3-8.2)
[2024-06-27 13:26] LABS: Bacteria None Seen /HPF (None Seen); Epithelial Cells None Seen /HPF (None Seen); Hyaline Casts NONE SEEN /LPF (0-2); RBC 0-2 /HPF (0-5); WBC 0-2 /HPF (0-5)
[2024-06-27 13:33] LABS: Appearance Clear (Clear); Bilirubin Negative (Negative); Blood Negative (Negative); Glucose, Urine >=1000 mg/dL (Negative); Ketones 40 (Negative); Leukocyte Esterase Negative (Negative); Nitrite Negative (Negative); Ph 5.5 (4.6-8.0); Protein,Urine Dip 30 (Negative); Specific Gravity >=1.030 (1.005-1.030)
[2024-06-27 13:46] LABS: Absolute Neutrophil Ct (ANC) 4.49 x10^3/uL (1.78-5.38); BASOPHIL % 0.7 % (0.2-1.2); Basophil (Absolute #) 0.04 x10^3/uL (0.01-0.08); Eosinophil (Absolute #) 0 x10^3/uL (0.04-0.54); Hematocrit 29.8 % (40.1-51.0); Hemoglobin 9.6 g/dL (13.7-17.5); IMMATURE GRAN # 0.06 x10^3u/L (0.001-0.031); IMMATURE GRAN % 1.1 % (0.001-0.429); Lymphocyte (Absolute #) 0.23 x10^3/uL (1.32-3.57); Lymphocytes % 4.3 % (21.8-53.1); Mean Cell Volume 97.1 fL (79.0-92.2); Mean Corpuscular Hemoglobin 31.3 pg (25.7-32.2); Mean Corpuscular Hgb Concent. 32.2 g/dL (32.3-36.5); Mean Platelet Volume 10.5 fL (9.4-12.4); Monocyte (Absolute #) 0.54 x10^3/uL (0.30-0.82); Monocytes % 10.1 % (5.3-12.2); Neutrophil % 83.8 % (34.0-67.9); Platelet Count 141 x10^3/uL (163-337); Red Blood Count 3.07 x10^6/uL (4.63-6.08); Red Cell Distribution Width 21.2 % (11.6-14.4); White Blood Count 5.4 x10^3/uL (4.23-9.07)
[2024-06-27 14:08] LABS: Slide Review 1 YES
[2024-06-27] MEDS ORDERED: DUONEB 0.5-3 MG/3 ml Neb IH ONE (16:07)
[2024-06-27] MEDS: DUONEB 0.5-3 MG/3 ml Neb IH ONE (16:10)
[2024-06-27] MEDS ORDERED: Levofloxacin 500 MG Tablet ONE (16:48)
[2024-06-27] MEDS: Levofloxacin 500 MG Tablet PO ONE (16:50)
[2024-06-27 18:07] VITALS: RESP 20
[2024-06-27 18:38] VITALS: PULSE 114
[2024-06-27 19:28] VITALS: BP 125/82; O2SAT 94
== END 2024-06-27 19:20 | disposition home or self-care (01) ==
LOC: ED 10:50
DX: R50.9 Fever, unspecified (principal); R05.2 Subacute cough; R79.89 Other specified abnormal findings of blood chemistry; I10 Essential (primary) hypertension; E78.5 Hyperlipidemia, unspecified; Z79.01 Long term (current) use of anticoagulants; Z79.84 Long term (current) use of oral hypoglycemic drugs; Z79.899 Other long term (current) drug therapy; Z72.0 Tobacco use
CPT/HCPCS: 0241U; 36415; 71045; 80053; 81001; 83605; 84145; 84439; 84443; 85025; 86308; 87040; 87651; 93041; 94640; 94760; 96360; 96361; 99285; 99284; A9270-GY